=== PATIENT | female | born 1955 | race Caucasian/White ===

== ENCOUNTER 2017-12-18 11:05 | Emergency (ER) | payer OTHER ==
[~2017-12-18 11:05] MED LIST: ADVAIR 250-501 EACH INH; ADVAIR DISKU 11 UNIT INH; ADVAIR DISKUS 21 DSK INH; AGGRENOX 25 MG-1 CAP PO; AGGRENOX 25 MG1 EACH PO; ALBUTEROL2.5 MG/0.5 INH/SOL; ALBUTEROL3 ML INH; ALEVE220 MG PO; AMBIEN (MONOGRAP5 MG PO; ATIVAN 0.5MG T0.5 MG PO; ATIVAN0.5 M1 PO; ATORVASTATIN CA40 MG PO; ATORVASTATIN CA80 M1 PO; ATORVASTATIN CA80 MG PO; ATROVENT 0.02%2.5 ML INH; ATROVENT15 ML NASB; AUGMENTIN 875-1 EACH PO; CHANTIX1 MG PO; CIPRO 500MG TA500 MG PO; COZAAR50 M1 PO; CYCLOBENZAPRINE10 M1 PO; DIFLUCAN150 MG PO; DOXYCYCLINE100 MG PO; FLAG500 PO; FLEXERIL10 MG PO; GABAPENTIN100 M2 PO; HUMALOG100 U/ML INC; HUMALOG100 U/ML SC; HYDROCODON-ACE1 EAC2 PO; HYDROCODON-ACE1 EAC3 PO; HYDROCODON-ACETAMINO PO; HYDROCODONE/ACE1 TA2 PO; HYDROXYZINE PAM25 M1 PO; INCRUSE ELLI62.5 MCG PO; KLOR-CON 10MEQ10 MEQ PO; LABETALOL HCL100 M1 PO; LABETALOL HYDR100 MG PO; LASIX20 MG PO; LEVEMIR 10100 UNITS/ SC; LEVEMIR100 U/ML SC; LEVEMIR100 UNIT/1 SC; LEVOFLOXACIN750 M1 PO; LEVOTHYROXIN0.125 M1 PO; LEVOTHYROXINE125 MCG PO; LIDEX0.05 %/15 TOP; LIPITOR80 MG PO; LOSARTAN POTASS25 MG PO; LYRICA150 MG PO; LYRICA300 MG PO; METFORMIN HCL500 M1 PO; MUCINEX ER600 MG PO; Mucinex PO; NORTRIPTYLINE25 M1 PO; NOVOLOG100 U/ML SC; NOVOLOG100 UNIT/1 SC; NOVOLOG100 UNIT/2 SC; PANTOPRAZOLE SO40 M1 PO; PERCOCET 5-3251 EACH PO; PREDNISONE 10MG10 M1 PO; PREDNISONE10 M2 PO; PREDNISONE10 MG PO; PREDNISONE20 M1 PO; PREDNISONE50 M1 PO; PRILOSEC20 MG PO; PRINIVIL 5MG5 MG PO; PROAIR HFA8.5 GM INH; SPIRIVA 18 MCG18 MCG INH; SPIRIVA18 MCG INH; SYMBICORT 160/41 PUF INH; SYMBICORT 16010.2 GM INH; SYMBICORT 80/4.1 PUF INH; SYNTHROID0.05 MG PO; TOVIAZ 4MG4 MG PO; TRAMADOL50 MG PO; TRESIBA FL100 UNIT/1 SC; TRESIBA FL200 UNIT/1 SC; VICODIN 500 MG-1 TAB PO; VICODIN7.5-300 PO; VICTOZA6 MG/ML SC; VITAMIN D1000 UNIT PO; XOPENEX HFA15 GM INH; ZANTAC150 M1 PO; ZITHROMAX 500M500 MG PO; ZITHROMAX Z PA250 MG PO; ZITHROMAX250 M2 PO; ZOFRAN ODT4 MG PO
--- NOTE | 2017-12-18 11:42 | ED GENERAL ADULT ---
History of Present Illness General Chief Complaint: Lower Extremity Problems Stated Complaint: RT LEG PAIN X 2 MONTHS Source: patient Exam Limitations: no limitations Vital Signs & Intake/Output Vital Signs & Intake/Output Vital Signs Date Time Temp Pulse Resp B/P B/P Pulse O2 O2 Flow FiO2 Mean Ox Delivery Rate 12/18 1404 97.6 90 18 158/70 98 Room Air 12/18 1217 98 Room Air 12/18 1115 97.0 101 17 167/84 96 Room Air Allergies Coded Allergies: acetaminophen (Intermediate, RASH 10/23/17) Iodinated Contrast- Oral and IV Dye (Iodinated Contrast Media - IV Dye) (RASH ALL OVER 12/12/16) Penicillins (RASH 12/12/16) Reconcile Medications Atorvastatin Calcium 80 MG TABLET 1 TAB PO QPM CHOLESTEROL (Reported) Fluticasone/Vilanterol (Breo Ellipta 200-25 Mcg INH) 200 MCG-25 MCG/DOSE BLST.W.DEV 1 PUFF PO DAILY SHORTNESS OF BREATH (Reported) Hydrocodone/Acetaminophen (Vicodin Es 7.5-300 MG Tablet) 7.5 MG-300 MG TABLET 1 TAB PO TID PRN PAIN (Reported) Insulin Degludec (Tresiba Flextouch U-100) 100 UNIT/ML (3 ML) INSULN.PEN 45 UNITS SC DAILY DIABETES (Reported) Levalbuterol Tartrate (Xopenex Hfa) 45 MCG/ACTUATION HFA.AER.AD 2 PUF INH Q4-6 PRN PRN SHORTNESS OF BREATH (Reported) Levothyroxine Sodium 125 MCG TABLET 1 TAB PO DAILY AC THYROID (Reported) Losartan Potassium (Cozaar) 50 MG TABLET 1 TAB PO DAILY HEART (Reported) Pantoprazole Sodium 40 MG TABLET.DR 1 TAB PO DAILY GI (Reported) Prednisone 20 MG TABLET 1 TAB PO DAILY ARTHRITIS Tiotropium [place] (Spiriva) 18 MCG CAP.W.DEV 1 CAP INH DAILY COPD (Reported) Triage Note: PT TO ED WITH C/O ATRAUMATIC RIGHT LEG PAIN BEGINNING 2 MONTHS AGO. STATES PAIN BEGAN IN GROIN AREA AND NOW EXTENDS TO KNEE. REPORTS SWELLING AROUND KNEE WELL. ABLE TO BEAR WEIGHT. +PEDAL PULSES. TRIED FLEXERIL AND VICODIN AT HOME W/O RELIEF. Triage Nurses Notes Reviewed? yes Onset: Abrupt Duration: week(s): Timing: recent history HPI: 12/18/17 62-year-old female with atraumatic right leg pain for several months. She has a past medical history of small cell lung cancer, diabetes, and heart disease. Most of her pain is in the superior aspect of her right knee. She does have free range of motion. There is no swelling, erythema or ligament instability. No calf tenderness. X-ray of the right knee showing below: PATIENT: MICHAELLE MERCADO PRESENT AGE: 62 PATIENT ACCOUNT NO: [id number] : 56 LOCATION: [facility] ORDERING PHYSICIAN: Bernabe DE OLIVEIRA SERVICE DATE: 12/18/17 EXAM TYPE: RAD - XRY-KNEE COMPLETE RIGHT EXAMINATION: XR KNEE, RIGHT CLINICAL INFORMATION: Right knee pain for 2 months. Presumptive diagnosis of fracture, effusion. Patient states pain for a few months, unable to bear weight. No known injury. COMPARISON: None TECHNIQUE: 4 views of the right knee performed on 5 images. FINDINGS: Diffuse osteopenia. No acute fracture or dislocation. No significant knee joint effusion. Quadriceps tendon and patellar tendon shadows intact and unremarkable. Minimal spurring in the patellofemoral compartment. Medial and lateral femoral compartments unremarkable. Arteriovascular calcifications seen in the popliteal fossa. IMPRESSION: 1. Diffuse osteopenia. No acute fracture or dislocation. 2. Minimal degenerative change in the patellofemoral compartment. 3. Peripheral arterial calcifications. DICTATED BY: Anabella Lebron MD DATE/TIME DICTATED:12/18/171152 WATER/WASTEWATER PROJECT MANAGER:ANNI DATE/TIME TRANSCRIBED:12/18/171152 CONFIDENTIAL, DO NOT COPY WITHOUT APPROPRIATE AUTHORIZATION. <Electronically signed in Other Vendor System> SIGNED BY: Anabella Lebron MD 1200 Ultrasound result is pending Past History Travel History Traveled to [place] past 21 day No Medical History Any Pertinent Medical History? 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 FH: hypertension, Onset: Unknown. FATHER FH: diabetes mellitus FH: hypertension, Onset: Unknown. Relation not specified for: FHx: stroke Hx Contributory? No Review of Systems Review of Systems Constitutional: Denies: fever. EENTM: Denies: visual changes. Respiratory: Denies: short of breath. Cardiovascular: Denies: chest pain. GI: Denies: abdominal pain. Genitourinary: Reports: no symptoms. Musculoskeletal: Reports: see HPI. Skin: Reports: no symptoms. Neurological/Psychological: Reports: no symptoms. Hematologic/Endocrine: Reports: no symptoms. Immunologic/Allergic: Reports: no symptoms. Physical Exam Physical Exam General Appearance: alert, awake, anxious, mild distress Head: atraumatic, normal appearance Eyes: Bilateral: normal appearance, PERRL, EOMI. Ears, Nose, Throat: normal pharynx, normal ENT inspection Neck: normal inspection, supple, full range of motion Respiratory: normal breath sounds Cardiovascular: regular rate/rhythm Peripheral Pulses: 3+ tibialis posterior (R), 3+ tibialis posterior (L) Gastrointestinal: soft, non-tender Back: normal range of motion Extremities: tenderness (right knee) Neurologic/Psych: no motor/sensory deficits, awake, alert, oriented x 3 Skin: intact, normal color, warm/dry Core Measures ACS in differential dx? No CVA/TIA Diagnosis: No Sepsis Present: No Sepsis Focused Exam Completed? No Progress Differential Diagnoses I considered the following diagnoses in my evaluation of the patient: [Sciatica, arthritis, peripheral vascular disease, acute arterial occlusion, DVT, knee strain] Plan of Care: Orders Procedure Date/time Status Durable Medical Equipment 12/18 1408 Active Initial ED EKG: none Departure Departure Disposition: HOME OR SELF CARE Condition: Stable Clinical Impression Primary Impression: Arthritis Secondary Impressions: Right knee pain Referrals: Robert Cross MD (PCP/Family) Departure Forms: Customer Survey General Discharge Information Prescriptions: Current Visit Scripts Prednisone 1 TAB PO DAILY #4 TAB Comments The patient's right lower extremity is completely unremarkable other than tenderness to the superior aspect of the right knee. Ultrasound of the right knee is negative for DVT. No sign of vascular compromise to the right lower extremity. The temperature of the right leg is normal. She has a strong posterior tibial pulse on the right. We'll treat with a short course of prednisone. She will follow-up with her doctor this week. PATIENT: MICHAELLE MERCADO PRESENT AGE: 62 PATIENT ACCOUNT NO: [id number] : 56 LOCATION: [facility] ORDERING PHYSICIAN: Bernabe DE OLIVEIRA SERVICE DATE: 12/18/17 EXAM TYPE: US - US-DUPLEX VENOUS EXTREM UNI EXAMINATION: US TRIPLEX LOWER EXTREMITY, RIGHT CLINICAL INFORMATION: This is a 62-year-old female with right lower leg pain and swelling. Possible deep vein thrombosis. COMPARISON: None TECHNIQUE: Color-flow triplex imaging with spectral analysis and compression Doppler were performed on the lower extremity. FINDINGS: Respiratory variation, normal compression and augmented flow are noted throughout the lower extremity. The visualized common femoral vein, superficial femoral vein, profunda femoral vein, popliteal vein and midcalf peroneal and posterior tibial venous segments show no evidence of deep venous thrombosis. There is no Kearns's cyst. IMPRESSION: No evidence of deep venous thrombosis involving the lower extremity. DICTATED BY: Luther Roberts MD DATE/TIME DICTATED:12/18/171306 WATER/WASTEWATER PROJECT MANAGER:ANNI DATE/TIME TRANSCRIBED:12/18/171306 CONFIDENTIAL, DO NOT COPY WITHOUT APPROPRIATE AUTHORIZATION. <Electronically signed in Other Vendor System> SIGNED BY: Luther Roberts MD 1311 Critical Care Note Critical Care Note Critical Care Time: non-applicable
--- NOTE | 2017-12-18 12:00 | RADIOLOGY REPORT ---
EXAMINATION: XR KNEE, RIGHT CLINICAL INFORMATION: Right knee pain for 2 months. Presumptive diagnosis of fracture, effusion. Patient states pain for a few months, unable to bear weight. No known injury. COMPARISON: None TECHNIQUE: 4 views of the right knee performed on 5 images. FINDINGS: Diffuse osteopenia. No acute fracture or dislocation. No significant knee joint effusion. Quadriceps tendon and patellar tendon shadows intact and unremarkable. Minimal spurring in the patellofemoral compartment. Medial and lateral femoral compartments unremarkable. Arteriovascular calcifications seen in the popliteal fossa. IMPRESSION: 1. Diffuse osteopenia. No acute fracture or dislocation. 2. Minimal degenerative change in the patellofemoral compartment. 3. Peripheral arterial calcifications.
[2017-12-18] MEDS ORDERED: VICODIN ES 7.51 EACH PO (12:59)
[2017-12-18] MEDS ORDERED: BREO ELLIPTA 21 EACH PO (13:00)
--- NOTE | 2017-12-18 13:11 | ULTRASOUND REPORT ---
EXAMINATION: US TRIPLEX LOWER EXTREMITY, RIGHT CLINICAL INFORMATION: This is a 62-year-old female with right lower leg pain and swelling. Possible deep vein thrombosis. COMPARISON: None TECHNIQUE: Color-flow triplex imaging with spectral analysis and compression Doppler were performed on the lower extremity. FINDINGS: Respiratory variation, normal compression and augmented flow are noted throughout the lower extremity. The visualized common femoral vein, superficial femoral vein, profunda femoral vein, popliteal vein and midcalf peroneal and posterior tibial venous segments show no evidence of deep venous thrombosis. There is no Kearns's cyst. IMPRESSION: No evidence of deep venous thrombosis involving the lower extremity.
[2017-12-18 14:04] VITALS: BP 158/70
[2017-12-18] MEDS ORDERED: PREDNISONE20 M1 PO (14:09)
== END 2017-12-18 14:13 ==
LOC: ERH 11:05
DX: M17.11 Unilateral primary osteoarthritis, right knee (principal); M25.561 Pain in right knee; E11.9 Type 2 diabetes mellitus without complications; I10 Essential (primary) hypertension; I25.10 Atherosclerotic heart disease of native coronary artery without angina pectoris; Z87.891 Personal history of nicotine dependence; Z79.4 Long term (current) use of insulin
CPT/HCPCS: 73562-RT